=== PATIENT | male | born 1985 | race African-American/Black ===

== ENCOUNTER 2022-05-07 02:29 | Emergency (ER) | payer MEDICAID, OTHER ==
[~2022-05-07] VITALS: Ht 175.3 cm; Wt 118.0 kg
[~2022-05-07 02:29] MED LIST: ARIP2TAB3 PO; LISINOPRIL; QUET25TA PO; ZYPREXA
[2022-05-07 03:11] VITALS: BP 148/69
== END 2022-05-07 08:37 | disposition left against medical advice (07) ==
LOC: ER 02:29
DX: Z53.21 Procedure and treatment not carried out due to patient leaving prior to being seen by health care provider (principal)

== ENCOUNTER 2022-06-01 18:56 | Emergency (ER) | payer OTHER ==
[~2022-06-01] VITALS: Ht 175.3 cm; Wt 127.0 kg
[2022-06-01 20:47] LABS: BASOPHILS % 0.8 % (0.0-2.0); EOSINOPHILS % 1.4 % (0.0-5.0); HEMATOCRIT. 41.6 % (42.0-52.0); HEMOGLOBIN. 13.8 g/dL (14.0-18.0); MEAN CORPUSCULAR HEMOGLOBIN 29.4 pg (28.0-32.0); MEAN CORPUSCULAR VOLUME 88.7 fL (80.0-94.0); MEAN PLATELET VOLUME 8.1 fl (7.4-10.4); MONOCYTES % 8.2 % (2.0-8.0); NEUTROPHILS % 43.6 % (40.0-76.0); PLATELET 334 x1000/uL (130-400); RED BLOOD CELL COUNT 4.69 mill/uL (4.7-6.1); RED CELL DISTRIBUTION WIDTH 15.5 % (11.6-14.6)
[2022-06-01] MEDS: TRAZODONE HCL 50MG TABLET PO SCH (22:17)
[2022-06-02 20:33] LABS: *AMPHETAMINES SCREEN URINE NEGATIVE (NEGATIVE); *BARBITURATES SCREEN URINE NEGATIVE (NEGATIVE); *BENZODIAZEPINES SCREEN URINE NEGATIVE (NEGATIVE); *COCAINE SCREEN URINE NEGATIVE (NEGATIVE); CANNABINOID URINE SCREEN PRESUMTIVE POSITIVE (NEGATIVE); METHADONE URINE SCREEN NEGATIVE (NEGATIVE); OPIATES URINE SCREEN NEGATIVE (NEGATIVE); PHENCYCLIDINE URINE SCREEN NEGATIVE (NEGATIVE)
[2022-06-02] MEDS ORDERED: OLANZAPINE 10MG TABLET PO SCH (21:00)
[2022-06-02] MEDS: TRAZODONE HCL 50MG TABLET PO SCH (23:32)
[2022-06-03 03:17] LABS: CHLORIDE 103 mEq/L (98-107)
[2022-06-03 03:19] LABS: ETHANOL BLOOD < 10 mg/dL
[2022-06-03 14:11] VITALS: BP 158/103
== END 2022-06-03 14:12 ==
LOC: ER 20:22
DX: R45.851 Suicidal ideations (principal); I10 Essential (primary) hypertension; E11.9 Type 2 diabetes mellitus without complications; Z98.890 Other specified postprocedural states; Z86.59 Personal history of other mental and behavioral disorders; Z20.822 Contact with and (suspected) exposure to COVID-19
CPT/HCPCS: 36415; 80053; 80305; 80307; 80320; 80329; 82962; 85025; 87426; 93005; 99285; G0480